=== PATIENT | male | born 1965 | race Caucasian/White ===

== ENCOUNTER 2017-08-28 21:09 | Emergency (ER) | payer SELFPAY ==
[~2017-08-28] VITALS: Ht 175.3 cm; Wt 113.4 kg
[2017-08-28 22:02] LABS: Basophils # (auto) 0.1 uL; Eosinophils # (auto) 0.1 uL; Monocytes # (auto) 0.9 uL; Nucleated Red Blood Cells % 0.3 %
[2017-08-28 22:05] LABS: Hemoglobin 19.7 g/dL (13.5-17.5); Lymphocytes # (auto) 2.1 uL; Lymphocytes % (auto) 28.8 % (10.0-50.0); Mean Corpuscular Hemoglobin 31.4 pg (28.0-32.0); Mean Corpuscular Hgb Conc. 34.8 g/dL (32.0-36.0); Mean Corpuscular Volume 90.4 fL (80.0-100.0); Monocytes % (auto) 11.9 % (0.0-12.0); Neutrophils # (auto) 4.1 uL; Neutrophils % (auto) 56.3 % (37.0-80.0); Platelet Count (auto) 157 10^3/uL (140-450); Red Blood Cells 6.28 10^6/uL (4.5-5.90); Red Cell Distribution Width 15.3 % (11.8-14.3); White Blood Cell 7.2 10^3/uL (4.4-10.8)
[2017-08-28 22:13] LABS: Urine Bacteria NONE SEEN /hpf (None Seen); Urine Blood 1+ /uL (Negative); Urine Specific Gravity 1.016 (1.001-1.035); Urine WBC 1 /hpf (0 - 3)
[2017-08-28 22:17] LABS: Hematocrit 56.7 % (41.0-53.0)
[2017-08-28 22:24] LABS: Albumin 3.6 g/dL (3.4-5.0); Anion Gap 9 (5-15); Calcium 8.5 mg/dL (8.5-10.1); Carbon Dioxide 25 mmol/L (21-32); Chloride 110 mmol/L (98-107); Glucose 148 mg/dL (74-106); Potassium 3.7 mmol/L (3.5-5.1); Sodium 144 mmol/L (136-145)
[2017-08-28 22:31] LABS: Blood Urea Nitrogen 10 mg/dL (7-18)
[2017-08-28 22:32] LABS: Alanine Aminotransferase 67 U/L (16-61); Alkaline Phosphatase 80 U/L (45-117); Aspartate Aminotransferase 79 U/L (15-37); BUN/Creatinine Ratio 11.9; Bilirubin, Total 0.5 mg/dL (0.2-1.0); GFR African American 124 mL/min; GFR Non-African American 103 mL/min; Partial Thromboplastin Time 30.4 sec (22.64-33.71); Prothrombin Time 10.9 sec (9.37-12.3)
[2017-08-28 22:34] LABS: Amphetamine Screen, Urine NEGATIVE (NEGATIVE); Barbiturate Scree,Urine NEGATIVE (NEGATIVE); Benzodiazephine Screen, Urine NEGATIVE (NEGATIVE); Cannabinoid Screen, Urine NEGATIVE (NEGATIVE); Cocaine Screen, Urine NEGATIVE (NEGATIVE); Opiate Scree,Urine POSITIVE (NEGATIVE); Phencyclidine Screen, Urine NEGATIVE (NEGATIVE)
[2017-08-28] MEDS ORDERED: LORazepam 2MG/ML-1ML VIAL ONE (23:42)
[2017-08-28] MEDS ORDERED: LORazepam 2MG/ML-1ML VIAL IV ONE (23:45)
[2017-08-29] MEDS ORDERED: SODIUM CHLORIDE 0.9% 3,000 ML IV ONE (02:30)
[2017-08-29] MEDS ORDERED: QUEtiapine FUMARATE 100 MG TAB PO ONE (02:30)
[2017-08-29 05:04] VITALS: BP 156/89
== END 2017-08-29 05:15 | disposition home or self-care (01) ==
LOC: ER 21:09 → EDBD 21:09 → ER 08-29 05:15
DX: F10.129 Alcohol abuse with intoxication, unspecified (principal); F41.9 Anxiety disorder, unspecified; G89.29 Other chronic pain
CPT/HCPCS: 36415; 70450; 80053; 80307; 80320; 81001; 84484; 85025; 85610; 85730; 93005; 96361; 96374; 99285; J2060